=== PATIENT | male | born 1970 | race Two or more races ===

== ENCOUNTER 2024-12-23 07:54 | Inpatient (IN) | payer BC ==
[2024-12-23] MEDS: Ondansetron 4 MG/2 ML SDV IV STA (08:27)
[2024-12-23 09:04] LABS: BASOPHILS ABSOLUTE AUTO 0.0 K/mm3 (0.0-0.2); BASOPHILS PERCENT AUTO 0.1 % (0.0-1.0); EOSINOPHILS ABSOLUTE AUTO 0.0 K/mm3 (0.0-0.4); EOSINOPHILS PERCENT AUTO 0.0 % (0.0-6.0); IMMATURE GRAN ABSOLUTE AUTO 0.06 K/mm3 (0.00-0.05); IMMATURE GRAN PERCENT AUTO 0.7 % (0.0-0.4); LYMPHOCYTES ABSOLUTE AUTO 0.6 K/mm3 (1.0-4.8); LYMPHOCYTES PERCENT AUTO 7.3 % (24.0-44.0); MEAN PLATELET VOLUME 10.7 fl (9.4-12.4); MONOCYTES ABSOLUTE AUTO 0.4 K/mm3 (0.0-0.8); MONOCYTES PERCENT AUTO 4.5 % (0.0-8.0); NEUTROPHILS ABSOLUTE AUTO 7.4 K/mm3 (1.8-7.7); NEUTROPHILS PERCENT AUTO 87.4 % (41.0-71.0); NRBC ABSOLUTE 0.00 (0.00-0.02); NRBC PERCENT 0.0 % (0.0-0.2); PLATELET COUNT,PLT 214 K/mm3 (150-400); RED BLOOD CELL COUNT 5.73 M/mm3 (4.52-5.90); WHITE BLOOD CELL COUNT,WBC 8.47 K/mm3 (3.9-11.3)
[2024-12-23 09:11] LABS: A/G RATIO 0.8 (1-2); ALANINE AMINOTRANSFERASE,ALT 121.0 U/L (16-63); ASPARTATE AMNIOTRANSFERASE,AST 151.0 U/L (15-37); BILIRUBIN TOTAL 0.8 mg/dL (0.2-1.0); BLOOD UREA NITROGEN,BUN 54.0 mg/dL (7-18); CARBON DIOXIDE,CO2 23.0 mEq/L (21-32); CHLORIDE,CL 84.0 mEq/L (98-107); CREATINE KINASE,CK 226.0 U/L (39-308); CREATININE 4.9 mg/dL (0.7-1.3); EST CRCL DRUG DOSING (CG) 14.99 mL/min; ESTIMATED GFR 13.0 mL/min (>60); GLUCOSE RANDOM 340.0 mg/dL (70-99); POTASSIUM,K 3.0 mEq/L (3.5-5.1); PROTEIN TOTAL,TP 7.9 g/dl (6.4-8.2); SODIUM,NA 126.0 mEq/L (136-145)
[2024-12-23 09:15] LABS: ETHANOL BLOOD MEDICAL 0.0 gm% (0.00)
[2024-12-23] MEDS: Potassium Chloride 20 MEQ Tab.ER PO ONE (10:00)
[2024-12-23 11:44] LABS: LACTIC ACID 1.9 mmol/L (0.4-2.0)
[2024-12-23] MEDS: Levofloxacin/Dextrose 5%-Water 750 MG in Premix Bag 1 BAG IV ONE (15:35)
[2024-12-23] MEDS: metroNIDAZOLE/Normal Saline 500 MG in Premix Bag 1 BAG IV ONE (15:36)
[2024-12-23] MEDS: Lactated Ringers 1,000 ML IV SCH (15:39)
[2024-12-23 16:23] LABS: BLOOD UREA NITROGEN,BUN 50.0 mg/dL (7-18); CARBON DIOXIDE,CO2 22.0 mEq/L (21-32); CHLORIDE,CL 95.0 mEq/L (98-107); GLUCOSE RANDOM 263.0 mg/dL (70-99); POTASSIUM,K 3.3 mEq/L (3.5-5.1); SODIUM,NA 131.0 mEq/L (136-145)
[2024-12-23 16:32] LABS: EST CRCL DRUG DOSING (CG) 24.49 mL/min; ESTIMATED GFR 24.0 mL/min (>60)
[2024-12-23 16:38] LABS: CREATININE 3.0 mg/dL (0.7-1.3)
[2024-12-23] MEDS ORDERED: 50% Dextrose in Water 50 ML Syringe IVPUSH PRN (17:26)
[2024-12-23] MEDS: Insulin Lispro 100 Unit/ML 3 ML KwikPen SUBCUT SCH (17:38)
[2024-12-23 17:41] LABS: APPEARANCE,URINE CLEAR (Clear); GLUCOSE,URINE 1+ (Negative); OCCULT BLOOD,URINE 1+ (Negative)
[2024-12-23 17:51] LABS: EPITHELIAL CELLS,URINE 0-5 /hpf (0-5)
[2024-12-23] MEDS: Ondansetron 4 MG/2 ML SDV IVPUSH PRN (17:56)
[2024-12-23] MEDS: NS + KCl 20mEq/L 1,000 ML IV SCH (17:56)
[2024-12-23 18:46] LABS: BUPRENORPHINE SCREEN,URINE NEGATIVE (CUTOFF=10); METHADONE SCREEN, URINE NEGATIVE (CUT0FF=200); METHAMPHETAMINES SCREEN, URINE NEGATIVE (CUTOFF=500); OXYCODONE SCREEN,URINE NEGATIVE (CUT0FF=100); THC SCREEN,URINE 20 NG/ML NEGATIVE (CUTOFF=50)
[2024-12-23 18:51] LABS: AMPHETAMINES SCREEN, URINE NEGATIVE (CUTOFF=500)
[2024-12-24 04:13] LABS: BASOPHILS ABSOLUTE AUTO 0.0 K/mm3 (0.0-0.2); BASOPHILS PERCENT AUTO 0.6 % (0.0-1.0); EOSINOPHILS ABSOLUTE AUTO 0.0 K/mm3 (0.0-0.4); EOSINOPHILS PERCENT AUTO 0.0 % (0.0-6.0); IMMATURE GRAN ABSOLUTE AUTO 0.07 K/mm3 (0.00-0.05); IMMATURE GRAN PERCENT AUTO 1.0 % (0.0-0.4); LYMPHOCYTES ABSOLUTE AUTO 0.8 K/mm3 (1.0-4.8); LYMPHOCYTES PERCENT AUTO 11.0 % (24.0-44.0); MEAN PLATELET VOLUME 10.6 fl (9.4-12.4); MONOCYTES ABSOLUTE AUTO 0.7 K/mm3 (0.0-0.8); MONOCYTES PERCENT AUTO 9.4 % (0.0-8.0); NEUTROPHILS ABSOLUTE AUTO 5.4 K/mm3 (1.8-7.7); NEUTROPHILS PERCENT AUTO 78.0 % (41.0-71.0); NRBC ABSOLUTE 0.00 (0.00-0.02); NRBC PERCENT 0.0 % (0.0-0.2); PLATELET COUNT,PLT 192 K/mm3 (150-400); RED BLOOD CELL COUNT 4.98 M/mm3 (4.52-5.90); WHITE BLOOD CELL COUNT,WBC 6.92 K/mm3 (3.9-11.3)
[2024-12-24 04:46] LABS: A/G RATIO 0.6 (1-2); ALANINE AMINOTRANSFERASE,ALT 119 U/L (16-63); ASPARTATE AMNIOTRANSFERASE,AST 154 U/L (15-37); BILIRUBIN TOTAL 0.4 mg/dL (0.2-1.0); BLOOD UREA NITROGEN,BUN 35 mg/dL (7-18); CARBON DIOXIDE,CO2 21 mEq/L (21-32); CHLORIDE,CL 95 mEq/L (98-107); CHOLESTEROL HDL 15 mg/dL (40-59); CHOLESTEROL LDL DIRECT 35 mg/dL (<100); CHOLESTEROL TOTAL 65 mg/dL (<200); CREATININE 1.7 mg/dL (0.7-1.3); EST CRCL DRUG DOSING (CG) 43.21 mL/min; ESTIMATED GFR 47 mL/min (>60); GLUCOSE RANDOM 218 mg/dL (70-99); POTASSIUM,K 2.9 mEq/L (3.5-5.1); PROTEIN TOTAL,TP 6.4 g/dl (6.4-8.2); SODIUM,NA 131 mEq/L (136-145)
[2024-12-24] MEDS: Potassium Chloride 20 MEQ Tab.ER PO ONE (08:14)
[2024-12-25 04:23] LABS: BASOPHILS ABSOLUTE AUTO 0.0 K/mm3 (0.0-0.2); BASOPHILS PERCENT AUTO 0.2 % (0.0-1.0); EOSINOPHILS ABSOLUTE AUTO 0.0 K/mm3 (0.0-0.4); EOSINOPHILS PERCENT AUTO 0.0 % (0.0-6.0); IMMATURE GRAN ABSOLUTE AUTO 0.04 K/mm3 (0.00-0.05); IMMATURE GRAN PERCENT AUTO 0.9 % (0.0-0.4); LYMPHOCYTES ABSOLUTE AUTO 0.9 K/mm3 (1.0-4.8); LYMPHOCYTES PERCENT AUTO 21.6 % (24.0-44.0); MEAN PLATELET VOLUME 10.2 fl (9.4-12.4); MONOCYTES ABSOLUTE AUTO 0.7 K/mm3 (0.0-0.8); MONOCYTES PERCENT AUTO 15.9 % (0.0-8.0); NEUTROPHILS ABSOLUTE AUTO 2.7 K/mm3 (1.8-7.7); NEUTROPHILS PERCENT AUTO 61.4 % (41.0-71.0); NRBC ABSOLUTE 0.00 (0.00-0.02); NRBC PERCENT 0.0 % (0.0-0.2); PLATELET COUNT,PLT 169 K/mm3 (150-400); RED BLOOD CELL COUNT 4.59 M/mm3 (4.52-5.90); WHITE BLOOD CELL COUNT,WBC 4.35 K/mm3 (3.9-11.3)
[2024-12-25 04:48] LABS: A/G RATIO 0.6 (1-2); ALANINE AMINOTRANSFERASE,ALT 98.0 U/L (16-63); ASPARTATE AMNIOTRANSFERASE,AST 99.0 U/L (15-37); BILIRUBIN TOTAL 0.4 mg/dL (0.2-1.0); BLOOD UREA NITROGEN,BUN 16.0 mg/dL (7-18); CARBON DIOXIDE,CO2 26.0 mEq/L (21-32); CHLORIDE,CL 101.0 mEq/L (98-107); CREATININE 1.0 mg/dL (0.7-1.3); EST CRCL DRUG DOSING (CG) 73.46 mL/min; ESTIMATED GFR 89.0 mL/min (>60); GLUCOSE RANDOM 187.0 mg/dL (70-99); POTASSIUM,K 3.4 mEq/L (3.5-5.1); PROTEIN TOTAL,TP 5.7 g/dl (6.4-8.2); SODIUM,NA 136.0 mEq/L (136-145)
[2024-12-25] MEDS: Potassium Chloride 20 MEQ Tab.ER PO ONE (07:59)
[2024-12-26 05:45] LABS: BASOPHILS ABSOLUTE AUTO 0.0 K/mm3 (0.0-0.2); BASOPHILS PERCENT AUTO 0.4 % (0.0-1.0); EOSINOPHILS ABSOLUTE AUTO 0.0 K/mm3 (0.0-0.4); EOSINOPHILS PERCENT AUTO 0.0 % (0.0-6.0); IMMATURE GRAN ABSOLUTE AUTO 0.09 K/mm3 (0.00-0.05); IMMATURE GRAN PERCENT AUTO 1.9 % (0.0-0.4); LYMPHOCYTES ABSOLUTE AUTO 1.3 K/mm3 (1.0-4.8); LYMPHOCYTES PERCENT AUTO 27.5 % (24.0-44.0); MEAN PLATELET VOLUME 10.2 fl (9.4-12.4); MONOCYTES ABSOLUTE AUTO 0.7 K/mm3 (0.0-0.8); MONOCYTES PERCENT AUTO 13.9 % (0.0-8.0); NEUTROPHILS ABSOLUTE AUTO 2.7 K/mm3 (1.8-7.7); NEUTROPHILS PERCENT AUTO 56.3 % (41.0-71.0); NRBC ABSOLUTE 0.00 (0.00-0.02); NRBC PERCENT 0.0 % (0.0-0.2); PLATELET COUNT,PLT 184 K/mm3 (150-400); RED BLOOD CELL COUNT 4.79 M/mm3 (4.52-5.90); WHITE BLOOD CELL COUNT,WBC 4.76 K/mm3 (3.9-11.3)
[2024-12-26 06:18] LABS: A/G RATIO 0.7 (1-2); ALANINE AMINOTRANSFERASE,ALT 79.0 U/L (16-63); ASPARTATE AMNIOTRANSFERASE,AST 59.0 U/L (15-37); BILIRUBIN TOTAL 0.4 mg/dL (0.2-1.0); BLOOD UREA NITROGEN,BUN 9.0 mg/dL (7-18); CARBON DIOXIDE,CO2 25.0 mEq/L (21-32); CHLORIDE,CL 104.0 mEq/L (98-107); CREATININE 0.7 mg/dL (0.7-1.3); EST CRCL DRUG DOSING (CG) 104.94 mL/min; ESTIMATED GFR 110.0 mL/min (>60); GLUCOSE RANDOM 163.0 mg/dL (70-99); POTASSIUM,K 3.0 mEq/L (3.5-5.1); PROTEIN TOTAL,TP 5.6 g/dl (6.4-8.2); SODIUM,NA 138.0 mEq/L (136-145)
[2024-12-26] MEDS: Potassium Chloride 20 MEQ Tab.ER PO ONE (08:21)
[2024-12-29 08:48] LABS: NOROVIRUS 1 BY PCR Not Detected; NOROVIRUS 2 BY PCR Not Detected
== END 2024-12-26 10:05 | disposition home or self-care (01) | DRG 248 ==
LOC: JD.ED 07:54 → JD.MS 15:24
PROVIDERS: ADMIT Family Medicine; ATTEND Family Medicine
DX: A04.8 Other specified bacterial intestinal infections (principal); E87.1 Hypo-osmolality and hyponatremia; N17.9 Acute kidney failure, unspecified; E87.6 Hypokalemia; E87.8 Other disorders of electrolyte and fluid balance, not elsewhere classified; E86.0 Dehydration; R74.01 Elevation of levels of liver transaminase levels; E11.65 Type 2 diabetes mellitus with hyperglycemia; E11.21 Type 2 diabetes mellitus with diabetic nephropathy; I10 Essential (primary) hypertension; E78.00 Pure hypercholesterolemia, unspecified; Z79.899 Other long term (current) drug therapy; Z79.84 Long term (current) use of oral hypoglycemic drugs
CPT/HCPCS: 36415; 74176; 74176-26; 80048; 80053; 80061; 80306; 80307; 81001; 82550; 82947; 83036; 83605; 83690; 83735; 84132; 85025; 86140; 87040; 87045; 87046; 87493; 87798; 87899; 93005; 93010; 96361; 96365; 96366; 96375; 99285; 99285-25; A9270-GY; J1650; J1836; J1956; J2405; J3480; J7030; J7120